=== PATIENT | male | born 1985 | race Caucasian/White ===

== ENCOUNTER 2016-07-27 09:58 | Emergency (ER) | payer SELFPAY ==
[2016-07-27 10:22] LABS: HEMOGLOBIN 17.1 gm/dl (14.0-17.5); RED BLOOD COUNT 5.67 M/UL (4.20-5.50); WHITE BLOOD COUNT 18.3 K/UL (4.5-11.0)
[2016-07-27 10:36] LABS: BUN/CREATININE RATIO 10 (0-10)
== END 2016-07-27 14:15 | disposition home or self-care (01) ==
LOC: ER1 09:58
PROVIDERS: Emergency Medicine
DX: R10.31 Right lower quadrant pain (principal); K85.90 Acute pancreatitis without necrosis or infection, unspecified; R91.1 Solitary pulmonary nodule; I51.9 Heart disease, unspecified; F17.210 Nicotine dependence, cigarettes, uncomplicated; D72.829 Elevated white blood cell count, unspecified; Z88.0 Allergy status to penicillin
CPT/HCPCS: 36415; 80053; 81001; 82150; 83690; 85025; 96374; 96375; 99284; J1885; J2270; J2405